=== PATIENT | female | born 1990 | race Caucasian/White ===

== ENCOUNTER 2020-01-28 22:21 | Emergency (ER) | payer SELFPAY ==
[~2020-01-28] VITALS: Ht 167.6 cm; Wt 61.2 kg
--- NOTE | 2020-01-28 22:41 | NUR ---
PT. ADMITTED TO ER-4A AMBULATORY C/O ABD. PAIN, HAD DIARRHEA X3DAYS. MD WILL SEE & EVALUATE PT.
[2020-01-28] MEDS ORDERED: ONDANSETRON 4 MG/2 ML VIAL ONE (23:21)
[2020-01-28] MEDS ORDERED: DICYCLOMINE HCL LIQ 10 MG/5 ML UDC ONE (23:22)
[2020-01-28] MEDS ORDERED: DIPHENOXYLATE HCL/ATROP SULF TABLET ONE (23:23)
--- NOTE | 2020-01-28 23:25 | NUR ---
kevon ivf lr open wide after iv started on r hand gauge #20. lab drawn , sent to lab.
[2020-01-28] MEDS: IV LACTATED RINGERS SOLUTION 1,000 ML IV ONE (23:26)
[2020-01-28] MEDS: ONDANSETRON 4 MG/2 ML VIAL IV ONE (23:27)
[2020-01-28] MEDS: DICYCLOMINE HCL LIQ 10 MG/5 ML UDC PO ONE (23:28)
[2020-01-28] MEDS: DIPHENOXYLATE HCL/ATROP SULF TABLET PO ONE (23:29)
[2020-01-28 23:36] LABS: BASOPHILS % (AUTO) 0.3 % (0.0-2.0); EOSINOPHILS % (AUTO) 0.3 % (0.0-7.0); HEMATOCRIT 36.3 % (31.2-41.9); HEMOGLOBIN 11.9 g/dL (10.9-14.3); LYMPHOCYTES # (AUTO) 1.4 K/uL (20.0-40.0); LYMPHOCYTES % (AUTO) 20.3 % (20.5-51.5); MEAN CORPUSCULAR HEMOGLOBIN 25.9 uug (24.7-32.8); MEAN CORPUSCULAR HGB CONC 33 g/dL (32.3-35.6); MEAN CORPUSCULAR VOLUME 79.3 fL (75.5-95.3); MONOCYTES # (AUTO) 0.3 K/uL (2.0-10.0); MONOCYTES % (AUTO) 4.4 % (0.0-11.0); NEUTROPHILS # (AUTO) 5.2 K/uL (1.8-8.9); NEUTROPHILS % (AUTO) 74.7 % (38.5-71.5); PLATELET COUNT (AUTO) 313 K/uL (179-408); RED BLOOD CELL COUNT(AUTO) 4.58 MIL/uL (3.63-4.92)
[2020-01-28 23:39] LABS: CARBON DIOXIDE 24 mmol/L (21-32); CHLORIDE 100 mmol/L (98-107); GLUCOSE 101 mg/dL (74-106); POTASSIUM 3.8 mmol/L (3.5-5.1); UREA NITROGEN, BLOOD 6 mg/dL (7-18)
[2020-01-28 23:46] LABS: ALANINE AMINOTRANSFERASE 16 U/L (14-59); ALKALINE PHOSPHATASE 64 U/L (50-136); ASPARTATE AMINOTRANSFERASE 30 U/L (15-37); BILIRUBIN,DIRECT < 0.1 mg/dL (0.0-0.2); BILIRUBIN,TOTAL 0.2 mg/dL (0.2-1.0); LIPASE 146 U/L (73-393); TOTAL PROTEIN, SERUM 7.3 g/dL (6.4-8.2)
--- NOTE | 2020-01-29 00:14 | NUR ---
ivf lactated ringers finished & infused.
--- NOTE | 2020-01-29 00:15 | NUR ---
DISCHARGE INSTRUCTIONS GIVEN & WAS UNDERSTOOD.
--- NOTE | 2020-01-29 00:35 | NUR ---
Patient discharged to home in stable condition. Written and verbal after care instructions given. Patient verbalizes understanding of instructions. Stressed follow up or return to ER for worsening s/s.
[2020-01-29 00:52] VITALS: BP 106/51
== END 2020-01-29 00:35 | disposition home or self-care (01) ==
LOC: ER 22:23
DX: R19.7 Diarrhea, unspecified (principal); R10.84 Generalized abdominal pain; Z87.09 Personal history of other diseases of the respiratory system
CPT/HCPCS: 36415; 80048; 80076; 83690; 84702; 85025; 96361; 96374; 99284; J2405; J7120; A4663

== ENCOUNTER 2020-01-29 19:58 | Emergency (ER) | payer SELFPAY ==
[~2020-01-29] VITALS: Ht 167.6 cm; Wt 61.2 kg
--- NOTE | 2020-01-29 20:45 | NUR ---
admitted ambulatory from home to er rm-3 c/o diarrhea, abd. pain. dr meyer seen & evaluated pt.
[2020-01-29] MEDS ORDERED: LIDOCAINE VISCUS 2% 15 ML UDC ONE (21:07)
[2020-01-29] MEDS ORDERED: MAG HYDROX/AL HYDROX/SIMETH 30 ML LIQUID UDC ONE (21:09)
[2020-01-29] MEDS: LIDOCAINE VISCUS 2% 15 ML UDC MM ONE (21:11)
[2020-01-29] MEDS: MAG HYDROX/AL HYDROX/SIMETH 30 ML LIQUID UDC PO ONE (21:11)
[2020-01-29] MEDS: IV NORMAL SALINE 1000 ML BAG IV ONE (21:16)
[2020-01-29] MEDS ORDERED: ONDANSETRON ODT 4 MG TAB.RAPDIS ONE (21:17)
[2020-01-29] MEDS ORDERED: OXYCODONE/APAP 5-325 MG TABLET ONE (21:17)
[2020-01-29] MEDS: OXYCODONE/APAP 5-325 MG TABLET PO ONE (21:20)
[2020-01-29] MEDS: ONDANSETRON ODT 4 MG TAB.RAPDIS SL ONE (21:20)
[2020-01-29 21:30] LABS: CREATININE 0.9 mg/dL (0.6-1.3); POTASSIUM 3.8 mmol/L (3.5-5.1)
--- NOTE | 2020-01-29 21:30 | NUR ---
ivf ns infused & completed.
[2020-01-29 23:24] VITALS: BP 109/68
== END 2020-01-29 22:00 | disposition home or self-care (01) ==
LOC: ER 20:00
DX: A04.5 Campylobacter enteritis (principal); F41.9 Anxiety disorder, unspecified; Z88.2 Allergy status to sulfonamides; R42 Dizziness and giddiness
CPT/HCPCS: 36415; A4663; J7030; Q0162